=== PATIENT | female | born 2000 | race Caucasian/White ===

== ENCOUNTER 2025-04-29 05:36 | Emergency (ER) | payer MEDICAID ==
[~2025-04-29] VITALS: Ht 162.6 cm; Wt 91.0 kg
[2025-04-29 05:49] VITALS: O2SAT 100
[2025-04-29] MEDS: KETOROLAC 30MG/ML VIAL IM ONE (07:00)
[2025-04-29] MEDS: HYDROCODONE/ACETAMINOPHEN 5/325MG TABLET PO ONE (07:47)
[2025-04-29] MEDS ORDERED: IBUP-1455 MT (08:24)
[2025-04-29 08:50] VITALS: BP 130/81; PULSE 74; RESP 15; TEMP 36.6; O2SAT 100
== END 2025-04-29 08:50 | disposition home or self-care (01) ==
LOC: ER 05:36
DX: S82.142A Displaced bicondylar fracture of left tibia, initial encounter for closed fracture (principal); W19.XXXA Unspecified fall, initial encounter; Y93.89 Activity, other specified; Y92.89 Other specified places as the place of occurrence of the external cause; Y99.8 Other external cause status
CPT/HCPCS: 99284; 29505; 73700; 73562; J1885